=== PATIENT | male | born 1945 | race Caucasian/White ===

== ENCOUNTER 2021-12-02 16:47 | Emergency (ER) | payer MEDICARE, OTHER ==
[2021-12-02] MEDS ORDERED: AUGMENTIN 500-1 EACH PO (17:43)
== END 2021-12-02 17:52 | disposition home or self-care (01) ==
LOC: FER 16:47
DX: S51.852A Open bite of left forearm, initial encounter (principal); L03.114 Cellulitis of left upper limb; I10 Essential (primary) hypertension; Z23 Encounter for immunization; W55.01XA Bitten by cat, initial encounter
CPT/HCPCS: 90471; 90715; 99283